=== PATIENT | female | born 1995 | race Caucasian/White ===

== ENCOUNTER → 2023-10-06 | Emergency (ER) | payer OTHER ==
[2023-10-06 12:07] LABS: Absolute Lymphocytes (CBC) 2.2 K/uL (0.7-4.9); Lymphocytes % 32.5 % (15.3-44.8); MCV 84.3 fL (80-100); MPV 7.8 fL (7.6-11.3); Platelets 331 thou/uL (152-406); RBC Red Blood Cell Count 4.39 M/uL (3.86-4.86)
[2023-10-06 12:15] LABS: Potassium 3.8 mEq/L (3.5-5.1)
--- NOTE | 2023-10-06 12:21 | RAD REPORT ---
EXAM DESCRIPTION: US - Transvaginal Study Probe - 10/06/2023 12:11 pm CLINICAL HISTORY: Vaginal bleeding COMPARISON: none FINDINGS: The uterus measures 8 x 3 x 4 cm. A fibroid is not seen. The endometrial stripe measures 4 millimeters The ovaries are normal in size and echotexture. Right ovary is upper limits normal size. Right ovary contains many follicles The right and left adnexa unremarkable. No significant free fluid is seen. IMPRESSION: Many follicles within the right ovary. This is a nonspecific finding but can be seen wit h polycystic ovarian syndrome
--- NOTE | 2023-10-06 12:41 | ER ---
Nurse's Notes [facility] Name: Jacquelyn Stein Age: 28 yrs Sex: Female : 1995 Arrival Date: 10/06/2023 Time: 11:16 Bed 10 Private MD: Diagnosis: Polycystic ovarian syndrome;Pelvic and perineal pain;Abnormal uterine and vaginal bleeding, unspecified Presentation: 10/06 11:22 Chief complaint: Patient states: Painful sex 10/04/23. Spotting started yesterday. Heavy ll1 vaginal bleeding with clots started today. G0, P0. Coronavirus screen: Client denies travel out of the [place] in the last 14 days. At this time, the client does not indicate any symptoms associated with coronavirus-19. Ebola Screen: Patient denies travel to an Ebola-affected area in the 21 days before illness onset. Initial Sepsis Screen: Does the patient meet any 2 criteria? No. Patient's initial sepsis screen is negative. Does the patient have a suspected source of infection? Yes: Acute abdominal pain. Risk Assessment: Do you want to hurt yourself or someone else? Patient reports no desire to harm self or others. Onset of symptoms was October 04, 2023. 11:22 Method Of Arrival: Ambulatory ll1 11:22 Acuity: STEPHANIE 3 ll1 Triage Assessment: 11:24 General: Appears uncomfortable, Behavior is calm, cooperative, appropriate for age. ll1 Pain: Complains of pain in pelvis Pain currently is 7 out of 10 on a pain scale. Quality of pain is described as aching, crampy. GI: Reports cramping. : Reports pain in bilateral in suprapubic area vaginal bleeding that is with clots, heavy flow. Historical: - Allergies: 11:21 No Known Allergies; ll1 - PMHx: 11:21 PCOS; thyroid problems; ll1 - PSHx: 11:21 None; ll1 - Immunization history:: Adult Immunizations up to date. - Social history:: Smoking status: Patient denies any tobacco usage or history of. Screenin:42 [facility] ED Fall Risk Assessment (Adult) History of falling in the last 3 months, kc6 including since admission No falls in past 3 months (0 pts) Confusion or Disorientation No (0 pts) Intoxicated or Sedated No (0 pts) Impaired Gait No (0 pts) Mobility Assist Device Used No (0 pt) Altered Elimination No (0 pt) Score/Fall Risk Level 0 - 2 = Low Risk. Abuse screen: Denies threats or abuse. Denies injuries from another. Nutritional screening: No deficits noted. Tuberculosis screening: No symptoms or risk factors identified. Assessment: 12:43 General: Appears in no apparent distress. comfortable, well groomed, well developed, kc6 Behavior is calm, cooperative, appropriate for age. Neuro: Level of Consciousness is awake, alert, obeys commands, Oriented to person, place, time, situation, Appropriate for age. Cardiovascular: Capillary refill < 3 seconds. Respiratory: Airway is patent Trachea midline Respiratory effort is even, unlabored, Respiratory pattern is regular, symmetrical. GI: No signs and/or symptoms were reported involving the gastrointestinal system. : Reports vaginal bleeding that is bright red, with clots, heavy flow. EENT: No signs and/or symptoms were reported regarding the EENT system. Derm: No signs and/or symptoms reported regarding the dermatologic system. Skin is intact, is healthy with good turgor, Skin is pink, warm \T\ dry. Musculoskeletal: No signs and/or symptoms reported regarding the musculoskeletal system. Circulation, motion, and sensation intact. Capillary refill < 3 seconds, Range of motion: intact in all extremities. Vital Signs: 11:22 BP 127 / 83; Pulse 75; Resp 16; Temp 97.7; Pulse Ox 100% on R/A; Weight 68.04 kg; ll1 Height 5 ft. 0 in. ; Pain 7/10; 11:22 Body Mass Index 29.29 (68.04 kg, 152.4 cm) ll1 11:22 Pain Scale: Adult ll1 ED Course: 11:17 Patient arrived in ED. rg4 11:19 Trenton Montanez DO is Attending Physician. ms3 11:21 Arm band placed on. ll1 11:24 Triage completed. ll1 11:55 Inserted saline lock: 22 gauge in left antecubital area, using aseptic technique. Blood ds4 collected. 12:12 Transvaginal Study Probe In Process Unspecified. EDMS 12:40 Kaitlynn Fung MD is Referral Physician. ms3 12:42 Patient maintains SpO2 saturation greater than 95% on room air. kc6 12:43 Patient has correct armband on for positive identification. Bed in low position. Call kc6 light in reach. Side rails up X 1. Adult w/ patient. Client placed on continuous cardiac and pulse oximetry monitoring. NIBP monitoring applied. 12:54 No provider procedures requiring assistance completed. IV discontinued, intact, kc6 bleeding controlled, No redness/swelling at site. Pressure dressing applied. Administered Medications: No medications were administered Medication: 12:55 VIS not applicable for this client. kc6 Outcome: 12:40 Discharge ordered by . ms3 12:54 Discharged to home ambulatory, with significant other, kc6 12:54 Condition: good 12:54 Discharge instructions given to patient, Instructed on discharge instructions, follow up and referral plans. Demonstrated understanding of instructions, follow-up care, 12:55 Patient left the ED. kc6 Signatures: Dispatcher [employer] EDMS Mukund Rodriguez ds4 Rosana Multani rg4 Angel Choe RN RN ll1 Trenton Montanez DO DO ms3 Nery Suarez, RN RN kc6 Corrections: (The following items were deleted from the chart) 11:24 11:22 Chief complaint: Patient states: Spotting started yesterday. Heavy vaginal ll1 bleeding with clots started today. G0, P0. ll1
--- NOTE | 2023-10-06 12:41 | EDPHYS ---
Physician Documentation [facility] Name: Jacquelyn Stein Age: 28 yrs Sex: Female : 1995 Arrival Date: 10/06/2023 Time: 11:16 Bed 10 Private MD: ED Physician Trenton Montanez HPI: 10/06 11:39 This 28 yrs old Female presents to ER via Ambulatory with complaints of Vaginal ms3 Bleeding, Abdominal Cramping. 11:39 28-year-old female with past medical history of PCOS, thyroid problems presents to the [facility] emergency department for vaginal spotting that began yesterday and became heavier today. Patient states she has not had a period in 1 year. Patient states her pain is 7/10 located in her lower abdomen. Patient denies alleviating or inciting factors. Patient states she has gone through approximately 1 pad every 2 hours today. Historical: - Allergies: 11:21 No Known Allergies; ll1 - PMHx: 11:21 PCOS; thyroid problems; ll1 - PSHx: 11:21 None; ll1 - Immunization history:: Adult Immunizations up to date. - Social history:: Smoking status: Patient denies any tobacco usage or history of. ROS: 11:39 Constitutional: Negative for fever, and chills. Neck: Negative for injury, pain, and ms3 swelling, Cardiovascular: Negative for chest pain, and palpitations. Respiratory: Negative for shortness of breath, cough, wheezing, and pleuritic chest pain, Abdomen/GI: Negative for abdominal pain, nausea, vomiting, diarrhea, and constipation, MS/Extremity: Negative for injury and deformity, 11:39 : Positive for vaginal bleeding, 11:39 All other systems are negative, Exam: 11:39 Constitutional: This is a well developed, well nourished patient who is awake, alert, ms3 and in no acute distress. Head/Face: Normocephalic, atraumatic. Neck: Trachea midline, no cervical lymphadenopathy. Supple, full range of motion without nuchal rigidity, or vertebral point tenderness. No Meningismus. Chest/axilla: Normal chest wall appearance and motion. Nontender with no deformity. Cardiovascular: Regular rate and rhythm with a normal S1 and S2. No gallops, murmurs, or rubs. Normal PMI, no JVD. No pulse deficits. Respiratory: Lungs have equal breath sounds bilaterally, clear to auscultation and percussion. No rales, rhonchi or wheezes noted. No increased work of breathing, no retractions or nasal flaring. Abdomen/GI: Soft, non-tender, with normal bowel sounds. No distension or tympany. No guarding or rebound. No evidence of tenderness throughout. Skin: Warm, dry with normal turgor. Normal color with no rashes, no lesions, and no evidence of cellulitis. MS/ Extremity: Pulses equal, no cyanosis. Neurovascular intact. Full, normal range of motion. Vital Signs: 11:22 BP 127 / 83; Pulse 75; Resp 16; Temp 97.7; Pulse Ox 100% on R/A; Weight 68.04 kg; ll1 Height 5 ft. 0 in. ; Pain 7/10; 11:22 Body Mass Index 29.29 (68.04 kg, 152.4 cm) ll1 11:22 Pain Scale: Adult ll1 MDM: 11:26 Patient medically screened. ms3 11:39 Differential diagnosis: dysfunctional uterine bleeding, dysmenorrhea, ms3 12:40 Data reviewed: vital signs, nurses notes, lab test result(s), radiologic studies, and ms3 as a result, I will discharge patient. Care significantly affected by the following chronic conditions: PCOS. Counseling: I had a detailed discussion with the patient and/or guardian regarding the historical points, exam findings, and any diagnostic results supporting the discharge/admit diagnosis, lab results, radiology results, the need for outpatient follow up, to return to the emergency department if symptoms worsen or persist or if there are any questions or concerns that arise at home. Special discussion: I discussed with the patient/guardian in detail that at this point there is no indication for admission to the hospital. It is understood, however, that if the symptoms persist or worsen the patient needs to return immediately for re-evaluation. ED course: Discussed ultrasound, labs with patient. Patient to follow-up with gynecology in 2 to 3 days. Patient understands and agrees with plan. All questions were answered. Return precautions discussed include worsening symptoms, or any other concerns. 10/06 11:28 Order name: Basic Metabolic Panel; Complete Time: 12:18 ms3 10/06 11:28 Order name: CBC with Diff; Complete Time: 12:18 ms3 10/06 11:28 Order name: Test, Urine; Complete Time: 12:18 ms3 10/06 12:12 Order name: Transvaginal Study Probe; Complete Time: 12:30 EDMS 10/06 11:28 Order name: IV Saline Lock; Complete Time: 12:27 ms3 10/06 11:28 Order name: Labs collected and sent; Complete Time: 12:27 ms3 10/06 11:28 Order name: NPO; Complete Time: 12:29 ms3 Administered Medications: No medications were administered Disposition Summary: 10/06/23 12:40 Discharge Ordered Notes: Location: Home ms3 Condition: Stable ms3 Diagnosis - Polycystic ovarian syndrome ms3 - Pelvic and perineal pain ms3 - Abnormal uterine and vaginal bleeding, unspecified ms3 Followup: ms3 - With: Kaitlynn Fung MD - When: 2 - 3 days - Reason: Recheck today's complaints Discharge Instructions: - Discharge Summary Sheet ms3 - Abnormal Uterine Bleeding ms3 - Polycystic Ovary Syndrome ms3 Forms: - Medication Reconciliation Form ms3 - Thank You Letter ms3 - Antibiotic Education ms3 - Prescription Opioid Use ms3 - Patient Portal Instructions ms3 - Leadership Thank You Letter ms3 Signatures: Dispatcher [employer] Angel Vidal, RN RN ll1 Trenton Montanez DO DO ms3 Corrections: (The following items were deleted from the chart) 12:12 11:30 Pelvis Complete+US.RAD.BRZ ordered. EDMS EDMS
[2023-10-06 13:18] VITALS: BP 127/83; TEMP 97.7; O2SAT 100
== END ==
LOC: ER 11:16
DX: N93.9 Abnormal uterine and vaginal bleeding, unspecified (principal); R10.2 Pelvic and perineal pain; E28.2 Polycystic ovarian syndrome
CPT/HCPCS: 36415; 76830; 80048; 81025; 85025; 99284

== ENCOUNTER 2024-11-10 08:46 | Emergency (ER) | payer OTHER, SELFPAY ==
--- OUTSIDE RECORDS SUMMARY | 2024-11-10 08:49 | XMS REPORT | Continuity of Care Document ---
Author Name Unknown Address [address] [facility] [place] [address] [facility] thconnect Address [address] [facility] [address] [place] [address] Care Team Providers Care Ore Puncher Name Role Phone Pcp, Patient Does Not Have A Primary Care Physic slade Kaitlynn Fung Attending Clinician Unavaila ble GC_SWHAHL_Kadiyala_S Attending Clinician Unavail able GC_GCBZW_Kadiyala_S Attending Clinician TORO Melgar Attending Clinician Unavailable Doctor Unassigned, [address] [facility] Attending Clinician Hillary De Oliveira NP Attending Clinician [phone] HILLARY MENSAH Attending Clinician Toro Melgar MD Attending Clinician [phone] Kaitlynn Fung Admitting Clinician Unavaila ble GC_SWHAHL_Kadiyala_S Admitting Clinician Unavail able GC_GCBZW_Kadiyala_S Admitting Clinician Unavaila HILLARY Booker Admitting Clinician Unavaila kelli Payers Payer Name Policy Type Policy Number Effective Date Expirati on Date Source [facility] [id number] 2021 00:00:00 Problems Condition Name Condition Details Condition Category Status Onset Date Resolution Date Last Treatment Date Treating Clinician Comments Source Discharge from nipple Discharge from Nipple Problem Active 01-25 00:00: 00 [facility] Mastodynia of bilateral breasts Mastodynia of Bilateral Breasts Problem Active 01-25 00:00: 00 [facility] Deep pain on intercours e Deep Pain on Intercours e Problem Active - 00:00: 00 [facility] Pain in pelvis Pain in Pelvis Problem Active 10-20 00:00: 00 [facility] Polycystic ovary syndrome Polycystic Ovary Syndrome Problem Active 10-20 00:00: 00 [facility] Polycystic ovaries Polycystic ovaries Disease Active 2021-09 00:00: 00 [facility] BMI 31.0-31.9, adult BMI 31.0-31.9, adult Disease Active 2021-09 00:00: 00 [facility] Fungal infection Fungal infection Disease Active 2021-09 0-10 00:00: 00 [facility] Right ovarian cyst Right ovarian cyst Disease Active 2021-09 0 00:00: 00 [facility] Thyroid disorder Thyroid disorder Disease Active 2021-09 0 00:00: 00 [facility] Well woman exam with routine gynecologi debbie exam Well woman exam with routine gynecologi debbie exam Disease Active 2021-09 0-07 00:00: 00 [facility] Allergies, Adverse Reactions, Alerts Allergy Name Allergy Type Status Severity Reaction(s) Onset Date Inactive Date Treating Clinician Comments Source NO KNOWN ALLERGIE S Drug Class Active [facility] Social History Social Habit Start Date Stop Date Quantity Comments Source [facility] of tobacco use Cigarette Smoker [facility] Alcohol intake 2022-07-24 00:00:00 2022-07-24 00:00:00 Current drinker of alcohol (finding) [facility] Exposure to SARS-CoV-2 (event) 2022-06-28 00:00:00 2022-07-08 12:36:00 Not sure [facility] History of Social function 2022-07-04 00:00:00 2022-07-04 00:00:00 [facility] Tobacco use and exposure 2022-07-04 00:00:00 2022-07-04 00:00:00 Smokeless tobacco non-user [facility] Sex Assigned At 1995 00:00:00 1995 00:00:00 [facility] Smoking Status Start Date Stop Date Source Former Smoker [facility] Tobacco smoking consumption unknown [facility] Occasional tobacco smoker 2022-07-04 00:00:00 [facility] Medications Ordered Medication Name Filled Medication Name Start Date Stop Date Current Medication? Ordering Clinician Indication Dosage Frequency Signature (SIG) Comments Components Source fluconazole 200 mg tablet 2021-09 00:00: 00 Yes [id number] 200mg Take 1 tablet by mouth in the morning. [facility] levothyroxi ne 25 mcg tablet 05-26 00:00: 00 Yes TAKE ONE (1) TABLET(S) BY MOUTH ONCE A DAY DIRECTED. [facility] metoclopram uyen HCl 10 mg tablet 05-15 00:00: 00 Yes TAKE 1 TABLET BY MOUTH EVERY 8 HOURS NEEDED [facility] tamsulosin 0.4 mg 24 hr capsule 05-15 00:00: 00 Yes .4mg Take 0.4 mg by mouth in the morning. [facility] Vital Signs Vital Name Observation Time Observation Value Comments S ource Body Weight 2024-06-02 00:00:00 159 [lb_av] [facility] Height 2024-06-02 00:00:00 60 [in_i] [facility] BP Diastolic 2024-06-02 00:00:00 70 mm[Hg] [facility] BMI (Body Mass Index) 2024-06-02 00:00:00 31.1 kg/m2 [facility] BP Systolic 2024-06-02 00:00:00 107 mm[Hg] [facility] BP Systolic 2024-01-26 00:00:00 114 mm[Hg] [facility] BP Diastolic 2024-01-26 00:00:00 73 mm[Hg] [facility] Height 2024-01-26 00:00:00 60 [in_i] [facility] BMI (Body Mass Index) 2024-01-26 00:00:00 31 kg/m2 [facility] Body Weight 2024-01-26 00:00:00 158.6 [lb_av] [facility] Systolic blood pressure 2022-07-24 14:08:00 111 mm[Hg] Nettie o [facility] Diastolic blood pressure 2022-07-24 14:08:00 72 mm[Hg] [facility] Heart rate 2022-07-24 14:08:00 84 /min [facility] Body temperature 2022-07-24 14:08:00 36.72 Uyen [facility] Respiratory rate 2022-07-24 14:08:00 18 /min [facility] Body height 2022-07-24 14:08:00 152.4 cm [facility] Body weight 2022-07-24 14:08:00 72.122 kg [facility] BMI 2022-07-24 14:08:00 31.05 kg/m2 [facility] Systolic blood pressure 2022-07-04 14:38:00 120 mm[Hg] [facility] Diastolic blood pressure 2022-07-04 14:38:00 83 mm[Hg] [facility] Heart rate 2022-07-04 14:38:00 77 /min [facility] Body temperature 2022-07-04 14:38:00 36.72 Uyen [facility] Respiratory rate 2022-07-04 14:38:00 18 /min [facility] Body height 2022-07-04 14:38:00 [facility].4 [facility] weight 2022-07-04 14:38:00 71.668 kg [facility] BMI 2022-07-04 14:38:00 30.86 kg/m2 [facility] Procedures Procedure Date / Time Performed Performing Clinicia n Source US, breast, unilateral 2024-01-26 00:00:00 [facility] PAP SMEAR-LIQUID BASED-CP 2022-07-04 14:54:00 Hillary Mensah [facility] ASSIGNMENT OF BENEFITS 2022-07-04 14:15:41 Docto r Unassigned, [address] [facility] Encounters Start Date/Time End Date/Time Encounter Type Admission Type Attending [facility] Facility Care Department Encounter ID Source 2024-06-03 16:00:00 Inpatient Kaitlynn Traore [facility] ANG[facility] [id number] [facility] 2024-06-02 00:00:00 2024-06-02 00:00:00 KELBY Duval: [address], [place] [id number] , Ph. [facility] - [facility]GCBZW[facility]* [id number] [facility] 2024-01-26 00:00:00 2024-01-26 00:00:00 KELBY Duval: [address], [place] [id number] , Ph. [facility] - [facility]BZ[facility]* [id number] [facility] 2023-12-15 00:00:00 2023-12-15 00:00:00 Outpatient GC_SWHAHL_K adiyala_S PRIV PRIV [id number] [facility] 2023-11-18 00:00:00 2023-11-18 00:00:00 Outpatient GC_SWHAHL_K adiyala_S PRIV PRIV [id number] [facility] 2023-11-09 00:00:00 2023-11-09 00:00:00 Outpatient GC_SWHAHL_K adiyala_S PRIV PRIV [id number] [facility] 2023-10-27 00:00:00 2023-10-27 00:00:00 Outpatient GC_GCBZW_Ka diyala_S PRIV PRIV [id number] [facility] 2023-10-26 00:00:00 2023-10-26 00:00:00 Outpatient GC_GCBZW_Ka diyala_S PRIV PRIV [id number] [facility] 2023-10-20 00:00:00 2023-10-20 00:00:00 Outpatient GC_GCBZW_Ka diyala_S PRIV PRIV [id number] [facility] 2023-10-19 00:00:00 2023-10-19 00:00:00 Outpatient GC_GCBZW_Ka diyala_S PRIV PRIV [id number] [facility] 2023-07-10 10:00:00 2023-07-10 10:00:00 Outpatient R TORO TURNER [facility] [id number] [facility] 2023-07-07 00:00:00 2023-07-07 00:00:00 Patient Secure Msg Doctor Unassigned, [address] [facility] [id number] [facility] 2022-07-24 09:00:00 2022-07-24 09:13:48 Office Visit Hillary Mensah [facility] [id number] [facility] 2022-07-24 09:00:00 2022-07-24 09:13:48 Outpatient R HILLARY MENSAH CHERYAL [facility] [id number] [facility] 2022-07-22 13:00:00 2022-07-22 13:00:00 Outpatient R HILLARY MENSAH CHERYAL [facility] [id number] [facility] 2022-07-15 14:14:18 2022-07-15 23:59:00 Outpatient R HILLARY MENSAH CHERYAL [facility] [id number] [facility] 2022-07-15 14:14:18 2022-07-15 23:59:00 Hospital Encounter Hillary Mensah [facility] [id number] [facility] 2022-07-04 09:45:00 2022-07-04 09:54:55 Office Visit Hillary Mensah [facility] 1..114 [id number] [facility] 2022-07-04 09:45:00 2022-07-04 09:54:55 Outpatient R HILLARY MENSAH CHERYAL [facility] [id number] [facility] 2022-07-04 00:00:00 2022-07-04 00:00:00 Orders Only Doctor Unassigned, [address] [place] [facility] [id number] [facility]
[2024-11-10] MEDS ORDERED: ONDANSETRON 4 MG/2 ML VIAL ONE (09:10)
[2024-11-10] MEDS ORDERED: NA CHLORIDE 0.9% 1,000 ML ONE (09:11)
[2024-11-10] MEDS ORDERED: MORPHINE 4 MG/ML SYR ONE (09:11)
[2024-11-10] MEDS ORDERED: KETOROLAC 30 MG/ML INJ ONE (09:11)
[2024-11-10 09:14] LABS: Absolute Basophils 0.1 K/uL (0-0.5); Absolute Eosinophils 0.1 K/uL (0-0.5); Absolute Lymphocytes (CBC) 2.3 K/uL (0.7-4.9); Absolute Monocytes 0.4 K/uL (0.1-1.3); Absolute Neutrophil 4.8 K/uL (1.8-8.0); Basophils % 0.7 % (0-1.3); Eosinophils % 1.5 % (0-4.4); Hematocrit 43.4 % (36.0-45.0); Hemoglobin 14.3 g/dL (12.0-15.0); Lymphocytes % 29.6 % (15.3-44.8); MCH 27.8 pg (27.0-35.0); MCHC 32.9 g/dL (32.0-36.0); MCV 84.5 fL (80-100); MPV 7.7 fL (7.6-11.3); Monocytes % 5.3 % (3.3-12.3); Neutrophils % 62.9 % (41.7-73.7); Nucleated Red Blood Cells % 0.2 % (0-0); Platelets 440 thou/uL (152-406); RBC Red Blood Cell Count 5.14 M/uL (3.86-4.86)
[2024-11-10 10:00] LABS: Albumin 3.8 g/dL (3.4-5.0); Albumin/Globulin Ratio 0.9 (1.1-1.8); Anion Gap 9.4 mEq/L (5.0-15.0); Bilirubin Total 0.3 mg/dL (0.2-1.0); Globulin 4.2 g/dL (2.3-3.5); Potassium 4.4 mEq/L (3.5-5.1)
[2024-11-10 10:40] LABS: Specific Gravity 1.022 (1.005-1.030); Sqamous Epithelial <5 /HPF (None Seen); Urine Bacteria <20 /HPF (<20); Urine Bilirubin NEGATIVE (Negative); Urine Blood Negative (Negative); Urine Clarity Extremely Turbid (Clear); Urine Color Light-Yellow (Yellow); Urine Crystals Unidentified Few /HPF (None Seen); Urine Culture Reflex Order REFLEXED; Urine Glucose NEGATIVE (Negative); Urine Ketones 1+ (Negative); Urine Microscopic Reflex YN ORDER UMIC; Urine Nitrite NEGATIVE (Negative); Urine Protein TRACE (Negative); Urine Urobilinogen Normal (Normal); Urine WBC 20-50 /HPF (<5)
--- NOTE | 2024-11-10 11:09 | RAD REPORT ---
EXAMINATION: CT ABDOMEN AND PELVIS WITHOUT CONTRAST CLINICAL INDICATION: R flank pain TECHNIQUE: CT abdomen and pelvis was performed, without IV contrast, as per department protocol. Axia l, sagittal and coronal reconstructions were obtained. One or more of the following dose reduction techniques were used: Automated exposure control, adjustment of the mA and kV according to the patien t size, and iterative reconstruction. Unless otherwise specified, incidental findings do not require dedicated imaging follow-up. COMPARISON: No prior exam. FINDINGS: The lack of intravenous contrast limits the sensitivity of this exam for evaluation of solid visceral organs, vascular structures, and retroperitoneum. LOWER CHEST: The visualized lung bases are clear. LIVER:Normal in size and contour. No focal lesion. Grossly unremarkable gallbladder. SPLEEN: Normal size. No focal lesion. PANCREAS: No mass, ductal dilation, or tuan-pancreatic fluid. ADRENALS: Normal; no mass. KIDNEYS AND URETERS: Normal size and contour. No hydronephrosis. Slight medullary calcinosis seen. URINARY BLADDER: Normal contour. GASTROINTESTINAL TRACT: No evidence of bowel obstruction, significant free fluid, free air or abscess . APPENDIX: Normal appendix. LYMPH NODES: No lymphadenopathy. MUSCULOSKELETAL: Mild lower lumbar spondylosis. ADDITIONAL FINDINGS: Mild fibroid uterus. IMPRESSION: No acute or concerning abnormalities in the abdomen or pelvis, with evaluation limited by lack of IV contrast. Slight medullary calcinosis may be seen in cases of dehydration.
--- NOTE | 2024-11-10 11:14 | EDPHYS ---
Physician Documentation [facility] Name: Jacquelyn Stein Age: 29 yrs Sex: Female : 1995 Arrival Date: 11/10/2024 Time: 08:46 Bed 18 Private MD: ED Physician Rebel Gandhi HPI: 11/10 09:01 This 29 yrs old Female presents to ER via Ambulatory with complaints of Low ec2 Back Pain. 09:01 Patient arrives today for evaluation of right flank pain. She reports a history of ec2 previous kidney stones. Patient reports no urinary complaints. Patient reports right upper abdominal pain as well. Some nausea, no vomiting, no diarrhea.. Historical: - Allergies: 08:56 No Known Allergies; ll1 - Home Meds: 08:56 anabar [Active]; ll1 - PMHx: 08:51 PCOS; thyroid problems; ll1 - PSHx: 08:56 None; ll1 - Immunization history:: Adult Immunizations up to date. - Infectious Disease History:: Denies. - Social history:: Smoking status: Patient denies any tobacco usage or history of. ROS: 09:02 Constitutional: as per hpi ec2 Exam: 09:02 Constitutional: GEN: NAD Head: atraumatic Eyes: EOMI Ears: External ears are ec2 normal. CV: regular rate LUNGS: no respiratory distress ABD: non-distended, soft, tender in the upper abdomen, right CVA TTP. SKIN: no evidence of rashes MSK: no evidence of trauma Vital Signs: 08:50 BP 115 / 89; Pulse 97; Resp 18; Pulse Ox 97% on R/A; db 08:57 Pulse 93; Resp 18; Temp 97.3; Pulse Ox 99% ; Weight 72.57 kg; Height 5 ft. 0 in. ; Pain ll1 8/10; 09:00 BP 122 / 96; Pulse 91; Resp 18; Pulse Ox 98% on R/A; db 09:40 BP 106 / 68; Pulse 60; Resp 18; Pulse Ox 98% ; db 09:51 BP 122 / 96; Pulse 91; Resp 18; Pulse Ox 96% ; db 11:00 BP 111 / 77; Pulse 65; Resp 18; Pulse Ox 98% on R/A; db 08:57 Body Mass Index 31.25 (72.57 kg, 152.4 cm) ll1 08:57 Pain Scale: Adult ll1 MDM: 08:54 Medical Screening Exam initiated ec2 09:02 Data reviewed: vital signs, nurses notes. ED course: Patient arrives today for ec2 evaluation of right flank pain. Examination yields abdominal findings as above. Will obtain lab work, urine studies, CT imaging. Differential includes processes such as ureteral stone, gallbladder calculi. Will treat the patient's pain.. 10:23 ED course: Blood work is unrevealing. Pending urine studies and CT imaging. On ec2 reassessment patient reports improvement in her symptoms.. 11:13 ED course: Urine with infectious markers with leuk esterase and WBCs. Will discharge ec2 home with antibiotics. Return precautions given.. 11/10 09:01 Order name: CBC with Diff; Complete Time: 09:20 ec2 11/10 09:01 Order name: CMP; Complete Time: 10:03 ec2 11/10 09:01 Order name: Lipase; Complete Time: 10:03 ec2 11/10 09:01 Order name: Test, Urine; Complete Time: 10:45 ec2 11/10 09:01 Order name: Urinalysis w/ reflexes; Complete Time: 10:53 ec2 11/10 10:48 Order name: Urine Culture EDAL 11/10 09:01 Order name: CT Abd/Pelvis - Without Contrast; Complete Time: 11:13 ec2 11/10 09:01 Order name: IV Saline Lock; Complete Time: 09:08 ec2 11/10 09:01 Order name: Labs collected and sent; Complete Time: 09:08 ec2 Administered Medications: 09:15 Drug: NS 0.9% IV 1000 ml IV at 1 bolus Per protocol; to be given as a bolus over 60 db minutes Route: IV; Rate: 1 bolus; Site: right antecubital; 09:18 Drug: TORadol - Ketorolac IVP 15 mg IVP once Route: IVP; Site: right antecubital; db 09:51 Follow up: Response: No adverse reaction; Pain is decreased db 09:18 Drug: Ondansetron IVP 4 mg IVP once; over 2 minutes Route: IVP; Site: right antecubital;db 09:51 Follow up: Response: No adverse reaction db 09:19 Drug: morphine IVP or IV 4 mg IVP once over 4 mins Route: IVP; Infused Over: 4 mins; db Site: right antecubital; 09:51 Follow up: Response: No adverse reaction; Pain is decreased db Disposition Summary: 11/10/24 11:14 Discharge Ordered Notes: Location: Home ec2 Condition: Stable ec2 Diagnosis - UTI/ Urinary tract infection, site not specified ec2 Followup: ec2 - With: Private Physician - When: - Reason: Re-evaluation by your physician Discharge Instructions: - Discharge Summary Sheet ec2 - Urinary Tract Infection, Adult ec2 Forms: - Medication Reconciliation Form ec2 - Antibiotic Education ec2 - Prescription Opioid Use ec2 - Patient Portal Instructions ec2 - Leadership Thank You Letter ec2 Prescriptions: - Bactrim DS 800-160 mg Oral Tablet - take 1 tablet ORAL route every 12 hours for 7 days; 14 tablet; Refills: 0, ec2 Product Selection Permitted Signatures: Dispatcher [employer] Angel Vidal RN RN 1 Kailyn Mccain RN RN db Rebel Gandhi MD MD ec2
--- NOTE | 2024-11-10 11:14 | ER ---
Nurse's Notes [facility] Name: Jacquelyn Stein Age: 29 yrs Sex: Female : 1995 Arrival Date: 11/10/2024 Time: 08:46 Bed 18 Private MD: Diagnosis: UTI/ Urinary tract infection, site not specified Presentation: 11/10 08:57 Chief complaint: Patient states: R flank pain with nausea, started this morning. ll1 Coronavirus screen: Client denies travel out of the [place] in the last 14 days. At this time, the client does not indicate any symptoms associated with coronavirus-19. Ebola Screen: Patient denies travel to an Ebola-affected area in the 21 days before illness onset. Initial Sepsis Screen: Does the patient meet any 2 criteria? No. Patient's initial sepsis screen is negative. Does the patient have a suspected source of infection? No. Patient's initial sepsis screen is negative. Risk Assessment: Do you want to hurt yourself or someone else? Patient reports no desire to harm self or others. Onset of symptoms was November 10, 2024. 08:57 Method Of Arrival: Ambulatory 1 08:57 Acuity: STEPHANIE 3 ll1 Triage Assessment: 08:58 General: Appears distressed, uncomfortable, Behavior is cooperative, appropriate for 3 age, crying. Pain: Complains of pain in R flank Pain currently is 8 out of 10 on a pain scale. Quality of pain is described as aching. GI: Reports nausea. : Reports pain in right flank(s). Historical: - Allergies: 08:56 No Known Allergies; ll1 - Home Meds: 08:56 anabar [Active]; ll1 - PMHx: 08:51 PCOS; thyroid problems; ll1 - PSHx: 08:56 None; ll1 - Immunization history:: Adult Immunizations up to date. - Infectious Disease History:: Denies. - Social history:: Smoking status: Patient denies any tobacco usage or history of. Screenin:30 [facility] ED Fall Risk Assessment (Adult) History of falling in the last 3 months, db including since admission No falls in past 3 months (0 pts) Confusion or Disorientation No (0 pts) Intoxicated or Sedated No (0 pts) Impaired Gait No (0 pts) Mobility Assist Device Used No (0 pt) Altered Elimination No (0 pt) Score/Fall Risk Level 0 - 2 = Low Risk Oriented to surroundings, Maintained a safe environment. Abuse screen: Denies threats or abuse. Denies injuries from another. Nutritional screening: No deficits noted. Tuberculosis screening: No symptoms or risk factors identified. Assessment: 09:28 Reassessment: Patient appears in no apparent distress at this time. Patient and/or db family updated on plan of care and expected duration. Pain level reassessed. Patient is alert, oriented x 3, equal unlabored respirations, skin warm/dry/pink. General: Appears in no apparent distress. comfortable, Behavior is calm, cooperative. Pain: Complains of pain in abdomen. Neuro: Level of Consciousness is awake, alert, obeys commands, Oriented to person, place, time, situation. Respiratory: Airway is patent Respiratory effort is even, unlabored, Respiratory pattern is regular, symmetrical. GI: Abdomen is flat, non-distended, Reports upper abdominal pain. 09:51 Reassessment: Patient appears in no apparent distress at this time. Patient and/or db family updated on plan of care and expected duration. Pain level reassessed. Patient is alert, oriented x 3, equal unlabored respirations, skin warm/dry/pink. Patient states feeling better. Patient states symptoms have improved. 11:38 Reassessment: Patient appears in no apparent distress at this time. Patient and/or db family updated on plan of care and expected duration. Pain level reassessed. Patient is alert, oriented x 3, equal unlabored respirations, skin warm/dry/pink. Vital Signs: 08:50 BP 115 / 89; Pulse 97; Resp 18; Pulse Ox 97% on R/A; db 08:57 Pulse 93; Resp 18; Temp 97.3; Pulse Ox 99% ; Weight 72.57 kg; Height 5 ft. 0 in. ; Pain ll1 8/10; 09:00 BP 122 / 96; Pulse 91; Resp 18; Pulse Ox 98% on R/A; db 09:40 BP 106 / 68; Pulse 60; Resp 18; Pulse Ox 98% ; db 09:51 BP 122 / 96; Pulse 91; Resp 18; Pulse Ox 96% ; db 11:00 BP 111 / 77; Pulse 65; Resp 18; Pulse Ox 98% on R/A; db 08:57 Body Mass Index 31.25 (72.57 kg, 152.4 cm) ll1 08:57 Pain Scale: Adult ll1 ED Course: 08:49 Patient arrived in ED. im 08:51 Arm band placed on Patient placed in an exam room, on a stretcher. ll1 08:54 Rebel Gandhi MD is Attending Physician. ec2 08:58 Triage completed. ll1 09:03 Kailyn Mccain, RN is Primary Nurse. db 09:08 CBC with Diff Sent. cc6 09:08 CMP Sent. cc6 09:08 Lipase Sent. cc6 09:08 Initial lab(s) drawn, by me, sent to lab. Inserted saline lock: 20 gauge in right cc6 antecubital area, using aseptic technique. Blood collected. Flushed with 10 mL NS. 09:30 Patient has correct armband on for positive identification. Bed in low position. Call db light in reach. Side rails up X 1. Pulse ox on. NIBP on. Pillow given. 09:30 No provider procedures requiring assistance completed. db 10:54 CT Abd/Pelvis - Without Contrast In Process Unspecified. EDMS 11:38 Provided Education on: DISCHARGE AND FOLLOWUP. db 11:38 IV discontinued, intact, bleeding controlled, No redness/swelling at site. db Administered Medications: 09:15 Drug: NS 0.9% IV 1000 ml IV at 1 bolus Per protocol; to be given as a bolus over 60 db minutes Route: IV; Rate: 1 bolus; Site: right antecubital; 09:18 Drug: TORadol - Ketorolac IVP 15 mg IVP once Route: IVP; Site: right antecubital; db 09:51 Follow up: Response: No adverse reaction; Pain is decreased db 09:18 Drug: Ondansetron IVP 4 mg IVP once; over 2 minutes Route: IVP; Site: right antecubital;db 09:51 Follow up: Response: No adverse reaction db 09:19 Drug: morphine IVP or IV 4 mg IVP once over 4 mins Route: IVP; Infused Over: 4 mins; db Site: right antecubital; 09:51 Follow up: Response: No adverse reaction; Pain is decreased db Medication: 11:38 VIS not applicable for this client. db Outcome: 11:14 Discharge ordered by . ec2 11:38 Discharged to home ambulatory, with family, db 11:38 Condition: stable 11:38 Discharge instructions given to patient, Instructed on discharge instructions, follow up and referral plans. Prescriptions given X 1, 12:14 Patient left the ED. ll1 Signatures: Dispatcher [employer] Angel Vidal RN RN ll1 Kaiyln Mccain RN RN db Ana Paula Valencia Edwin, MD MD ec2 Christina Del Angel 6
[2024-11-10 12:37] VITALS: TEMP 97.3
[2024-11-10 12:42] VITALS: BP 111/77; O2SAT 98
== END 2024-11-10 12:14 | disposition home or self-care (01) ==
LOC: ER 08:46
DX: N39.0 Urinary tract infection, site not specified (principal)
CPT/HCPCS: 36415; 74176; 80053; 81001; 81025; 83690; 85025; 87086; 87088; J2405; J7030